=== PATIENT | female | born 1940 | race Caucasian/White ===

== ENCOUNTER 2017-06-16 12:50 | Day surgery (SDC) | payer OTHER ==
[~2017-06-16 12:50] MED LIST: DIPRIVAN VIAL ONE
[2017-06-16] MEDS ORDERED: NS 1000 ML 1,000 ML ONE (13:25)
[2017-06-16] MEDS ORDERED: FENTANYL INJ 100 mcg ONE (14:00)
[2017-06-16] MEDS ORDERED: VERSED IV ONE (14:20)
[2017-06-16 15:08] VITALS: BP 122/62
== END 2017-06-16 15:10 | disposition home or self-care (01) ==
LOC: SURG1 12:50
PROVIDERS: ATTEND Internal Medicine
PROC: 0DB68ZX Excision of Stomach, Via Natural or Artificial Opening Endoscopic, Diagnostic (ICD-10-PCS; principal; 2017-06-16 15:15)
PROC: 0DJ08ZZ Inspection of Upper Intestinal Tract, Via Natural or Artificial Opening Endoscopic (ICD-10-PCS; principal; 2017-06-16 15:15)
DX: K22.2 Esophageal obstruction (principal); K44.9 Diaphragmatic hernia without obstruction or gangrene; K25.9 Gastric ulcer, unspecified as acute or chronic, without hemorrhage or perforation; K29.60 Other gastritis without bleeding; K29.80 Duodenitis without bleeding
CPT/HCPCS: A4217; J2250; J3010; J3490